=== PATIENT | male | born 1940 | race Caucasian/White ===

== ENCOUNTER 2020-04-08 18:06 | Inpatient (IN) | payer MEDICARE ==
[2020-04-08] MEDS ORDERED: cefTRIAXone 1 GM VIAL IVP STA (18:54)
[2020-04-08] MEDS ORDERED: VANCOMYCIN INJ 1 GM in SODIUM CHLORIDE 0.9% 500 ML IV STA (18:54)
--- NOTE | 2020-04-08 18:54 | ED Physician Documentation ---
History of Present Illness - Stated complaint Stated Complaint: GLF/FACIAL SWELLING - Chief complaint Chief Complaint: General - History obtained from History obtained from: Patient - History of Present Illness Timing: How many days ago (several) Pain level max: 0 Pain level now: 0 - Additonal information Additional information: 79-year-old male presents to the emergency department stating that he has had generalized weakness over the past 3 days. States that his face has been more red and swollen than usual as well. No fevers. He states that he has fallen 3 times, the last time took him almost 7 hours to get up. No changes in his medications. Nothing makes it better or worse. Review of Systems Ten Systems: 10 systems reviewed and negative Constitutional: denies: Fever, Chills Cardiac: denies: Chest pain / pressure Respiratory: denies: Cough GI: denies: Abdominal Pain, Nausea, Vomiting, Diarrhea Musculoskeletal: denies: Neck pain, Back pain Neurologic: denies: Focal weakness, Numbness, Headache PD PAST MEDICAL HISTORY - Past Medical History Past Medical History: Yes Cardiovascular: Hypertension Endocrine/Autoimmune: Type 2 diabetes - Present Medications Home Medications: Ambulatory Orders Medication Instructions Recorded Confirmed Atenolol [Tenormin] 50 mg PO DAILY 04/08/20 04/08/20 Enalapril [Vasotec] 20 mg PO DAILY 04/08/20 04/08/20 Glipizide 10 mg PO DAILY 04/08/20 04/08/20 Insulin Glargine [Lantus Solostar] 35 units SUBQ DAILY 04/08/20 04/08/20 Lovastatin 40 mg PO DAILY 04/08/20 04/08/20 Terazosin HCl 10 mg PO DAILY 04/08/20 04/08/20 Ubidecarenone [Co Q-10] 200 mg PO DAILY 04/08/20 04/08/20 amLODIPine [Norvasc] 10 mg PO QPM 04/08/20 04/08/20 hydroCHLOROthiazide 25 mg PO DAILY 04/08/20 04/08/20 [Hydrochlorothiazide] metFORMIN [Glucophage] 1,000 mg PO BIDWM 04/08/20 04/08/20 - Allergies Allergies/Adverse Reactions: Allergies Allergy/AdvReac Type Severity Reaction Status Date / Time No Known Drug Allergies Allergy Verified 04/08/20 18:16 - Living Situation Living Arrangement: reports: At home - Social History Does the pt have substance abuse?: No - Family History Family history: reports: Non contributory - Immunizations Immunizations are current?: Yes PD ED PE NORMAL - Vitals Vital signs reviewed: Yes - General General: Alert and oriented X 3, No acute distress - HEENT HEENT: Atraumatic, PERRL, Moist mucous membranes, Other (Significant bilateral facial cellulitis that extends from the cheeks up over the forehead. Crusting to the bilateral cheeks as well) - Neck Neck: Supple, no meningeal sign - Cardiac Cardiac: RRR - Respiratory Respiratory: No respiratory distress, Clear bilaterally - Abdomen Abdomen: Soft, Non tender, Non distended - Derm Derm: Warm and dry, No rash - Extremities Extremities: No edema, No calf tenderness / cord - Neuro Neuro: Alert and oriented X 3 - Psych Psych: Normal mood, Normal affect Results - Vitals Vitals: Vital Signs - 24 hr 04/08/20 04/08/20 04/08/20 18:16 18:21 19:30 Temperature 36.5 C Heart Rate 61 65 54 L Respiratory 14 16 16 Rate Blood Pressure 109/56 L 128/65 119/64 O2 Saturation 98 97 97 04/08/20 20:00 Temperature 36.1 C L Heart Rate 55 L Respiratory 18 Rate Blood Pressure 123/65 O2 Saturation 98 Oxygen O2 Source Room air - Labs Labs: Laboratory Tests 04/08/20 04/08/20 04/08/20 18:34 18:34 18:34 WBC 7.5 RBC 4.20 L Hgb 11.9 L Hct 35.2 L MCV 83.8 MCH 28.3 MCHC 33.8 RDW 13.8 Plt Count 108 L MPV 11.5 H Neut # (Auto) 5.5 Lymph # (Auto) 0.8 L [place] # (Auto) 1.1 H Eos # (Auto) 0.0 Baso # (Auto) 0.0 Absolute Nucleated RBC 0.00 Nucleated RBC % 0.0 ESR 65 H Sodium 129 L Potassium 3.4 L Chloride 88 L Carbon Dioxide 24 Anion Gap 17.0 H BUN 32 H Creatinine 1.6 H Estimated GFR (MDRD) 42 L Glucose 303 H Glycated Hemoglobin Estim Average Glucose Lactic Acid Calcium 8.8 Phosphorus 3.3 Magnesium 2.0 Total Bilirubin 3.0 H AST 26 ALT 24 Alkaline Phosphatase 49 C-Reactive Protein 16.3 H Total Protein 6.6 L Albumin 3.7 Globulin 2.9 Albumin/Globulin Ratio 1.3 Lipase 30 Urine Color Urine Clarity Urine pH Ur Specific Bre[place] Urine Protein Urine Glucose (UA) Urine Ketones Urine Occult Blood Urine Nitrite Urine Bilirubin Urine Urobilinogen Ur Leukocyte Esterase Ur Microscopic Review Urine Culture Comments 04/08/20 04/08/20 04/08/20 18:34 18:34 19:40 WBC RBC Hgb Hct MCV MCH MCHC RDW Plt Count MPV Neut # (Auto) Lymph # (Auto) [place] # (Auto) Eos # (Auto) Baso # (Auto) Absolute Nucleated RBC Nucleated RBC % ESR Sodium Potassium Chloride Carbon Dioxide Anion Gap BUN Creatinine Estimated GFR (MDRD) Glucose Glycated Hemoglobin 10.6 H Estim Average Glucose 258 H Lactic Acid 2.4 H Calcium Phosphorus Magnesium Total Bilirubin AST ALT Alkaline Phosphatase C-Reactive Protein Total Protein Albumin Globulin Albumin/Globulin Ratio Lipase Urine Color YELLOW Urine Clarity CLEAR Urine pH 5.0 Ur Specific Bre[place] >=1.030 H Urine Protein TRACE Urine Glucose (UA) 250 H Urine Ketones TRACE Urine Occult Blood NEGATIVE Urine Nitrite NEGATIVE Urine Bilirubin NEGATIVE Urine Urobilinogen 0.2 (NORMAL) Ur Leukocyte Esterase NEGATIVE Ur Microscopic Review NOT INDICATED Urine Culture Comments NOT INDICATED PD MEDICAL DECISION MAKING - ED course Complexity details: reviewed results, re-evaluated patient, considered differential, d/w patient ED course: Patient with significant facial cellulitis. Mild elevation of the lactate. Given Rocephin and vancomycin. Given IV fluids. Has hyperglycemia and weakness as well. Blood cultures drawn. He will need admission for IV antibiotics and ongoing further care. Entire face is swollen. Discussed the case with Dr. Walters, hospitalist who accepts This document was made in part using voice recognition software. While efforts are made to proofread this document, sound alike and grammatical errors may occur. Departure - Departure Disposition: 66 [facility] DC/Xfer Clinical Impression: Facial cellulitis, Hyperglycemia, Renal insufficiency Condition: Stable Discharge Date/Time: 04/08/20 21:03
[2020-04-08 19:00] LABS: BASOPHILS % (AUTO) 0.4 %; EOSINOPHILS % (AUTO) 0.4 %; HGB - HEMOGLOBIN 11.9 g/dL (14.0-18.0); LYMPHOCYTES # (AUTO) 0.8 10^3/uL (1.5-3.5); LYMPHOCYTES % (AUTO) 10.7 %; MEAN CORPUSCULAR HEMOGLOBIN 28.3 pg (27.0-31.0); MEAN CORPUSCULAR HGB CONC 33.8 g/dL (32.0-36.0); MEAN CORPUSCULAR VOLUME 83.8 fL (80.0-94.0); MEAN PLATELET VOLUME 11.5 fL (7.4-11.4); MONOCYTES # (AUTO) 1.1 10^3/uL (0.0-1.0); MONOCYTES % (AUTO) 14.7 %; NEUTROPHILS # (AUTO) 5.5 10^3/uL (1.5-6.6); NEUTROPHILS % (AUTO) 73.5 %; PLT - PLATELET COUNT 108 10^3/uL (130-450); RED CELL DISTRIBUTION WIDTH 13.8 % (12.0-15.0); WHITE BLOOD COUNT 7.5 x10^3/uL (4.8-10.8)
[2020-04-08] MEDS ORDERED: SODIUM CHLORIDE 0.9% 1,000 ML IV STA ×2 (19:07)
[2020-04-08 19:21] LABS: ALBUMIN 3.7 g/dL (3.2-5.5); ALBUMIN/GLOBULIN RATIO 1.3 (1.0-2.2); CALCIUM 8.8 mg/dL (8.5-10.3); CREATININE 1.6 mg/dL (0.6-1.2); CRP - C-REACTIVE PROTEIN 16.3 mg/dL (0-1.0); PHOSPHORUS 3.3 mg/dL (2.5-4.6); TOTAL PROTEIN 6.6 g/dL (6.7-8.2)
[2020-04-08] MEDS ORDERED: ACETAMINOPHEN 325 MG TABLET PO PRN (20:01)
[2020-04-08] MEDS ORDERED: ONDANSETRON ODT 4 MG TABLET TL PRN (20:01)
[2020-04-08] MEDS ORDERED: SODIUM CHLORIDE FLUSH 0.9% 10 ML SYRINGE IVP PRN (20:01)
[2020-04-08] MEDS ORDERED: oxyCODONE 5 MG TABLET PO PRN (20:01)
[2020-04-08] MEDS ORDERED: PROCHLORPERAZINE 10 MG/2 ML VIAL IVP PRN (20:01)
[2020-04-08] MEDS ORDERED: ONDANSETRON 4 MG/2 ML VIAL IVP PRN (20:01)
[2020-04-08 20:06] LABS: BILIRUBIN,URINE NEGATIVE (NEGATIVE); CLARITY,URINE CLEAR (CLEAR); GLUCOSE, URINE (UA) 250 mg/dL (NEGATIVE); KETONES,URINE (UA) TRACE mg/dL (NEGATIVE); LEUKOCYTE ESTERASE, URINE NEGATIVE (NEGATIVE); NITRITE,URINE NEGATIVE (NEGATIVE); OCCULT BLOOD,URINE NEGATIVE (NEGATIVE); PROTEIN,URINE TRACE mg/dL (NEGATIVE); UROBILINOGEN,URINE 0.2 (NORMAL) E.U./dL (NORMAL)
--- NOTE | 2020-04-08 20:12 | HISTORY & PHYSICAL EXAMINATION ---
Chief Complaint - Chief Complaint Chief Complaint: weakness with falls History of Present Illness - Admitted From Admitted From:: Home>ER - History Obtained From Records Reviewed: [facility] History obtained from: Dr. Rodriguez Exam Limitations: none - History of Present Illness HPI Comment/Other: This unfortunate gentleman with a history of diabetes, hypertension presents with weakness for the last 3 days. After asking many different ways, he answers me consistently by stating that he felt completely "normal" until April 05. He denies any fever, chills, change in appetite. No focal neurological deficits. No Change in bowel habits. He was sick in November for 4 days. He thinks he had COVID but was never tested. He had fever, cough, no smell, no appetite. He spent a lot of time soaking in the tub to bring his fever down. He gradually recovered and went back to "normal" until this last week. He thinks he may have been "tired" for about a week but that was about it. Because of the weakness he has fallen 3 times and it is taken him almost 7 hours to get up on that first day. He gotten up to go to the bathroom, and his leg gave out from underneath him and he slid to the floor. He lay on the floor for 7 hours and feels that his face got inflamed from the contact with ammonia and urine incontinence that he had. The only thing that he can add to that is is that he has had a red swollen face. Today he managed to get himself into the car, and was on his way to [employer] to get something to eat. He has had no appetite and has not really eaten much over the last 3 days. He was also can go to [employer]. He visited with his kkkksam-im-omx who lives here in [place]. His xinqvxs-ub-thl told him that "he looked terrible" and told him to come to the emergency room. He is usually not followed by local clinic. As such we have no previous records on him. In the emergency room he was afebrile, and slightly bradycardic in the 60s to 50s. Blood pressure was slightly low at 109/56. He had no respiratory distress and he was oxygenating well at 98% on room air. However he had extensive cellulitis over his face. Electrolyte disturbances including hyponatremia, hypokalemia, hypochloremia and a creatinine of 1.6. Lactic acid is 2.4. Is a diabetic his glucose is uncontrolled at 303. White cell count is normal with sed rate 65. Urinalysis has glucosuria but no infection. Because of the extensive cellulitis, relative hypotension in a gentleman who is on multiple medications for blood pressure, he will be admitted for treatment of severe cellulitis. History - Past Medical History Cardiovascular: reports: Hypertension Respiratory: reports: None Neuro: reports: None Endocrine/Autoimmune: reports: Type 2 diabetes (He checks his glucose daily. Last check was 153 yesterday. In the last 2 months he has been eating a lot of fresh strawberries, oranges, bananas. Been off of his diabetic diet and eating more carbs. Sometimes his glucose is been in the 200s. His last A1c in October was 6.3%.) GI: reports: None : reports: None HEENT: reports: None Psych: reports: None Musculoskeletal: reports: None Derm: reports: None MRSA Hx?: No - Family & Social History Family History Comment/Other: Mom at age 97 after a series of small strokes. She had a past medical history of hypertension. Dad at age 76 of "exhaustion". He had lived a very hard life. Maybe had high blood pressure prior to his . 2 half-sisters. 1 of metastatic lung cancer this fall 2018. Other half sister is healthy. 1 daughter with an old girlfriend. As far as he knows she is healthy. Living arrangement: At home Living Situation: Alone Social History Notes: He never smoked. Rarely drank. 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 He was once but has been for many decades. He never had children with his . He did have one daughter that he is occasionally in contact with from an old relationship. He has no history of recreational substance abuse. He was living in [place] Initially he was only here on the weekends. But for the last 20 years has [place] most [place] Still has his residence in [place] and his PCP is there as well. - Substance History Use: Uses substance without health or social issues: NONE Abuse: Recurrent use of substance despite neg consequences: NONE Dependence: Experiences withdrawal or developed tolerances: NONE - POLST Patient has POLST: No POLST Status: DNR (please see advanced care planning conversation) Meds/Allgy - Home Medications Home Medications: Ambulatory Orders Medication Instructions Recorded Confirmed Atenolol [Tenormin] 50 mg PO DAILY 04/08/20 04/08/20 Enalapril [Vasotec] 20 mg PO DAILY 04/08/20 04/08/20 Glipizide 10 mg PO DAILY 04/08/20 04/08/20 Insulin Glargine [Lantus Solostar] 35 units SUBQ DAILY 04/08/20 04/08/20 Lovastatin 40 mg PO DAILY 04/08/20 04/08/20 Terazosin HCl 10 mg PO DAILY 04/08/20 04/08/20 Ubidecarenone [Co Q-10] 200 mg PO DAILY 04/08/20 04/08/20 amLODIPine [Norvasc] 10 mg PO QPM 04/08/20 04/08/20 hydroCHLOROthiazide 25 mg PO DAILY 04/08/20 04/08/20 [Hydrochlorothiazide] metFORMIN [Glucophage] 1,000 mg PO BIDWM 04/08/20 04/08/20 - Allergies Allergies/Adverse Reactions: Allergies Allergy/AdvReac Type Severity Reaction Status Date / Time No Known Drug Allergies Allergy Verified 04/08/20 18:16 Review of Systems - Constitutional Constitutional: reports: Fatigue, Malaise, Weakness, Poor appetite, Weight gain, Other (The constitutional complaints have occurred over the last week. Weight gain has been over the last 2 to [address] for [place]. He has felt like he has been slowing down over the last year. In the less he does, the less he does. Less and less active, less and less desire to get out of the house to do things.). denies: Fever, Chills, Diaphoresis, Night sweats - Eyes Eyes: denies: Pain, Irritation, Amaurosis, Blurred vision, Vision loss - Ears, Nose & Throat Ears, Nose & Throat: denies: Ear pain, Hearing loss, Hearing aids, Nasal pain, Nasal discharge, Nosebleeds, Nasal obstruction, Nasal congestion - Cardiovascular Cariovascular: denies: Irregular heart rate, Palpitations, Chest pain, Edema, Lightheadedness, Syncope, Exertional dyspnea, Decr. exercise tolerance - Respiratory Respiratory: denies: Cough, Sputum production, Wheezing, Orthopnea, SOB at rest, SOB with exertion - Gastrointestinal Gastrointestinal: reports: Poor appetite. denies: Abdominal pain, Abdominal distention, Constipation, Diarrhea, Change in bowel habits, Nausea, Vomiting, Reflux/heartburn, Bloating - Genitourinary Genitourinary: reports: Incontinence. denies: Dysuria, Frequency, Urgency, Flank pain, Nocturia - Integumentary Integumentary: reports: Other (Since last , April 05, he has had a gradually worsening face rash that starts in his nasolabial folds and moves up his face to his scalp.). denies: Pruritis, Lesions - Neurological Neurological: reports: General weakness, Memory problems (Starting to have that over the last year. And it will be embarrassing things like forgetting his daughter's name.). denies: Focal weakness, Headache, Dizziness, Numbness Prior Level of Functionality: He is usually independent with activities of daily living. He drives a car, pays his own bills, dresses himself, feeds himself. Did spend a lot of time in restaurants until -. But with the stay in place orders has been cooking for himself more often. Did not use any durable medical equipment until this week when his weakness caused him to buy a cane to walk with. He is starting to need help around the house and thinks he will be hiring a reference librarian to come help him with that. Exam - Vital Signs Reviewed Vital Signs: Yes Vital Signs: Vital Signs x48h Temp Pulse Resp BP Pulse Ox 04/08/20 20:00 36.1 C L 55 L 18 123/65 98 04/08/20 19:30 54 L 16 119/64 97 04/08/20 18:21 65 16 128/65 97 04/08/20 18:16 36.5 C 61 14 109/56 L 98 - Physical Exam General Appearance: positive: No acute distress, Alert, Other (Elderly gentleman at 6 foot 3 inches tall, 104 kg. Main problem is lament of "I cannot even get up to sit up because I am so weak".) Eyes Bilateral: positive: PERRL, EOMI, Other (He has periorbital edema with swollen upper and lower eyelids that are both red with the cellulitis) ENT: positive: Pharynx nml, Other (His face is covered in a diffuse edema, heat, redness of confluent cellulitis. It starts at the nasolabial fold and goes up to cover all of his face, up the scalp and both sides of the scalp as well as top of the scalp. It starts to break up and become macular in the back part of his scalp. The skin of both earlobes and ears are hot, swollen.). negative: Pharyngeal erythema Neck: positive: No JVD, Lymphadenopathy (R), Lymphadenopathy (L). negative: Stiff neck, Carotid bruit Respiratory: positive: Chest non-tender, No respiratory distress. negative: Wheezes, Rales, Rhonchi Cardiovascular: positive: Regular rate & rhythm. negative: Systolic murmur, Gallop/S4, Friction rub Peripheral Pulses: positive: 1+ Abdomen: positive: Non-tender, No organomegaly, Nml bowel sounds, No distention Skin: positive: Warm, Dry. negative: Diaphoresis, Pallor Extremities: positive: Non-tender, No pedal edema, Other (He is wearing nylon socks that are knee-high, that provide an element of compression stocking similarity. Excellent foot pulses, no evidence of any previous edema or venous stasis.) Neurologic/Psychiatric: positive: Oriented x3, CN's nml (2-12), Sensation nml, Mood/affect nml. negative: Motor nml (Diffuse generalized weakness but reflexes are normal. He is weak enough that he needs a 1 person assist to sit up on the side of the bed to then transfer to stand and needs a two-person assist to make sure he can walk to a bedside commode.), Facial droop, Slurred/abnml speech, Depressed mood/affect Conclusion/Plan - Problem List (1) Facial cellulitis Conclusion/Plan: His presentation is puzzling. He is adamant that he was completely "normal" until April 05. He may felt little bit tired and fatigued but that was it. No antecedent infectious symptomatology on review of systems. His red face started only after laying on the floor for 7 hours. It is an impressive cellulitis on exam even though he does not have a fever or an elevated white cell count. He is ears are swollen enough that it almost looks as if he has malignant otitis. Plan: Inpatient status Coverage for methicillin-resistant staph because of his diabetes as well as regular strep species with Ancef and vancomycin. Check daily C-reactive protein to assess for response, check daily white cell count reveiw blood culture results when available. (2) Electrolyte disorder Conclusion/Plan: In this case, he has diabetes, lack of p.o. intake, on metformin, and I wonder how much all of this is contributed to his weakness. Sodium, potassium, chloride are all abnormal. Plan: IV fluids, treat underlying order of infection, manage p.o. intake with the IV fluids and carbohydrate restriction Check daily (3) Generalized weakness Conclusion/Plan: Due to debility from infection, and electrolyte imbalance and most likely dehydration. Plan: IV fluids for hydration Treat infection Check CPK to make sure he is not in rhabdo considering he is laying on the floor for hours at a time every day due to falls (4) Lactic acidosis Conclusion/Plan: Since he does not have a fever, elevated white cell count, I do not think lactic acidosis is from sepsis or infection. It may be due to dehydration, lack of water intake, and the use of metformin. Plan: Hold metformin Check lactic acid after fluid resuscitation (5) DM w/o complication type II, uncontrolled Conclusion/Plan: Since his metformin may have contributed to this metabolic derangement, I will hold off metformin or his sulfonylurea. Resume his usual Lantus dose at night. Give 5 units of short acting insulin with each meal. Sliding scale as well.We will give 2 L of normal saline at high rate. Check A1c Qualifiers: Glycemic state: with hyperglycemia Qualified Code(s): E11.65 - Type 2 diabetes mellitus with hyperglycemia (6) SHANTEL (acute kidney injury) Conclusion/Plan: As far as he knows, he has no chronic kidney disease and his kidney function labs have been normal in the past. He just does not remember what they are. As such I suspect an element of dehydration with acute kidney injury. Plan: IV fluids for hydration. Watch vancomycin trough to avoid further kidney injury Check BUN and creatinine daily (7) Hypertension Conclusion/Plan: He says that his blood pressure is high enough that he has to take 3 drugs. He is on atenolol, MARCUS inhibitor, calcium channel yuki, and a diuretic. At this time he is actually hypotensive in the face of diminished p.o. intake for the last few days. Orthostatic hypotension may be a component of his weakness and laying on the floor. I will resume a few of his medications tomorrow morning but avoid the hydrochlorothiazide. We will also reduce the dose of Vasotec. Qualifiers: Hypertension type: essential hypertension Qualified Code(s): I10 - Essential (primary) hypertension - Lab Results Lab results reviewed: Yes Fish Bones: 04/08/20 18:34 04/08/20 18:34
[2020-04-08 20:45] LABS: HB2 TOTAL 12.6 g/dL; HEMOGLOBIN A1C 1.16 g/dL; HEMOGLOBIN A1C % 10.6 % (4.6-6.2)
[2020-04-08] MEDS: INSULIN GLARGINE 300 UNIT/3 ML PEN SUBQ SCH (21:38)
[2020-04-08] MEDS: SODIUM CHLORIDE 0.9% 1,000 ML IV SCH (21:38)
[2020-04-08] MEDS: INSULIN ASPART 300 UNIT/3 ML PEN SUBQ SCH (21:40)
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
[2020-04-09] MEDS: SODIUM CHLORIDE FLUSH 0.9% 10 ML SYRINGE IVP SCH ×3 (01:39→18:29)
[2020-04-09] MEDS: SODIUM CHLORIDE 0.9% 1,000 ML IV SCH ×2 (01:54→06:55)
[2020-04-09] MEDS ORDERED: ceFAZolin 2 GM in SODIUM CHLORIDE 0.9% 100ML 100 ML IV SCH ×2 (03:00→11:00)
[2020-04-09] MEDS ORDERED: WATER FOR INJECTION,STERILE 10 ML ONE (03:10)
[2020-04-09 05:29] LABS: BASOPHILS % (AUTO) 0.2 %; EOSINOPHILS # (AUTO) 0.1 10^3/uL (0.0-0.7); EOSINOPHILS % (AUTO) 1.1 %; HGB - HEMOGLOBIN 10.4 g/dL (14.0-18.0); LYMPHOCYTES # (AUTO) 0.8 10^3/uL (1.5-3.5); LYMPHOCYTES % (AUTO) 15.9 %; MEAN CORPUSCULAR HEMOGLOBIN 27.3 pg (27.0-31.0); MEAN CORPUSCULAR HGB CONC 32.6 g/dL (32.0-36.0); MEAN CORPUSCULAR VOLUME 83.7 fL (80.0-94.0); MEAN PLATELET VOLUME 11.2 fL (7.4-11.4); MONOCYTES # (AUTO) 0.9 10^3/uL (0.0-1.0); MONOCYTES % (AUTO) 16.6 %; NEUTROPHILS # (AUTO) 3.5 10^3/uL (1.5-6.6); NEUTROPHILS % (AUTO) 65.8 %; PLT - PLATELET COUNT 99 10^3/uL (130-450); RED BLOOD COUNT 3.81 10^6/uL (4.70-6.10); RED CELL DISTRIBUTION WIDTH 13.8 % (12.0-15.0); WHITE BLOOD COUNT 5.3 x10^3/uL (4.8-10.8)
[2020-04-09 05:48] LABS: CALCIUM 7.8 mg/dL (8.5-10.3); CREATININE 1.4 mg/dL (0.6-1.2); CRP - C-REACTIVE PROTEIN 11.7 mg/dL (0-1.0)
[2020-04-09] MEDS: PANTOPRAZOLE 40 MG VIAL IVP SCH (06:12)
[2020-04-09] MEDS: POTASSIUM CHLORIDE 20 MEQ TABLET PO SCH ×3 (08:07→18:26)
[2020-04-09] MEDS: INSULIN ASPART 300 UNIT/3 ML PEN SUBQ SCH ×7 (08:07→22:02)
[2020-04-09] MEDS: ENALAPRIL 5 MG TABLET PO SCH (08:57)
[2020-04-09] MEDS: amLODIPine 5 MG TABLET PO SCH (08:57)
[2020-04-09] MEDS ORDERED: atenoloL 25 MG TABLET PO SCH (09:00)
--- NOTE | 2020-04-09 09:29 | PHARMACY PROGRESS NOTE ---
- Best Possible Medication History Admit Date and Time: 04/08/202000 Processed by: Pharmacy Medication History completed: Yes Secondary Source(s): Pharmacy records, Insurance records As the person ultimately responsible for medication therapy, providers are able to order a medication from an existing home medication list in [facility] via the "Reconcile Routine" prior to Confirmation of that medication by administrative support clerk. Such practice is discouraged except when the physician, in their clinical judgment, deems that a medical need exists for a medication without regard to previous use.
[2020-04-09] MEDS: ceFAZolin 2 GM in SODIUM CHLORIDE 0.9% 100ML 100 ML IV SCH ×2 (10:41→20:27)
--- NOTE | 2020-04-09 11:33 | PROVIDER PROGRESS NOTE ---
Assessment/Plan - Problem List (1) Facial cellulitis Assessment/Plan: He was started on Ancef and Vanco empirically, after blood cultures were drawn. Blood cultures are negative today after 24 hours. Pharmacy reviewed this choice of antibiotics and recommends that Vancomycin can be stopped because he has very low risk for MRSA. Continue IV Ancef. Await cultures. Symptomatic treatment for pain and discomfort of the face. (2) Malar rash Assessment/Plan: Appearance of the above cellulitis has a demarcation at and does not involve the skin below the nasolabial fold. Will work-up for lupus and consider any other dermatologic causes. Follow CRP or ESR. (3) Psoriasis Assessment/Plan: Patient describes that he is scalp itchiness and flakiness and over his forehead and eyebrows. He has tried multiple oils and ointments and usually takes a "3- hour bath to soak" and then puts on Vaseline intensive care ointment to his sca lp and forehead which prevents itchiness and scaling. Potentially his psoriasis became infected creating this facial cellulitis. We will order topical steroid cream and topical emollient (Eucerin). (4) SHANTEL (acute kidney injury) Assessment/Plan: Improving BUN/creat with iv hydration. Follow BMP daily. Continue iv hydration. (5) Micturition syncope Assessment/Plan: I spent a long time obtaining the events surrounding both episodes of falling while he was in the bathroom: Both occurred while he got up in the middle the night to go to the bathroom and was standing and urinating. He says that he did not black out and can remember everything but the feeling was that his "legs gave out on him". Will start work-up for syncope including getting EKG, Echo, telemetry, orthostatic vital sign checks, carotid Doppler and head CT. We will restart his Terazosin, since he probably was straining during urinating. (6) Orthostasis Assessment/Plan: He has a 10 mm drop in orthostatic blood pressure today and has a lower blood pressure than normal, despite getting only some of his antihypertensives. He does not have a compensatory tachycardia with this blood pressure drop, in fact blood pressure is in the 50s and 60s. I suspect he was already dehydrated and was taking all his usual BP meds and may have gotten bradycardic during micturition to cause the 2 episodes of falls in t he BR while standing. Will not resume all his home blood pressure meds, as was the plan by the admit ting provider. Decrease his atenolol from 25 mg daily to 12.5 mg daily.. (7) DM w/o complication type II, uncontrolled Assessment/Plan: Patient gave me an extensive description regarding his diabetic management. He has been a diabetic for 60 years. He has been on insulin and wanted to decrease the dose substantially. He also takes metformin maximum dose per day and glipizide. He eats only 1 meal a day which is between 5pm and 8 pm, at a restaurant. During [facility] all the restaurants closed and he was forced to make his own meals. He makes a very large meal and "eats for 10 people". He also was eating fruits that he usually avoids such as bananas, oranges and strawberries. He saw that his glucose was fluctuating at home over the [facility] isolation weeks to as high as 300. He did check his glucose during the 2 days that he was weaker and laying on the ground and states that it was no lower or no higher than his usual range of between 122 and maximum of 300. A1c here returned at 10.8, indicating poor control. Here he is on a carb controlled diet, fingerstick checks with sliding scale insulin plus his Lantus insulin. (8) Weakness Assessment/Plan: Patient describes that he has been "weaker than usual over the past 1-1/2 weeks". This culminated in the 2 episodes of falling in his bathroom. He laid on the ground for 7 hours after the first 1 and 5 hours after the second 1 and then was able to squirm over 2 parts of the house that had a carpet where he could get himself up. Dates that he checks his blood pressure and glucose several times a day and on both of those days the blood pressures in a sitting position was in his normal range and glucose as well. Will evaluate for a stroke with head CT. We will order PT and OT for evaluation. (9) Hypokalemia Assessment/Plan: Possibly related to dehydration, inadequate p.o. intake, inadequate IV rep lacement and from hyper glycemia. Replace. Follow BMP daily (10) Hyponatremia Assessment/Plan: Possibly related to hyperglycemia and his dehydration. Continue with saline hydration. Follow BMP daily (11) Anemia Assessment/Plan: This may have also led to the weakness and potential syncope too. Will check B12 and folate stores and iron stores, replace if low. Follow CBC daily. (12) Obstructive sleep apnea on CPAP Assessment/Plan: He has his CPAP machine at home which is locked up and no one can get to it. Will discuss with RT as to whether we have any hospital CPAP units here, for him to use. - Current Meds Current Meds: Current Medications Generic Name Dose Route Start Last Admin Trade Name Freq PRN Reason Stop Dose Admin Amlodipine Besylate 5 mg 04/09/20 09:00 04/09/20 08:57 Norvasc PO 5 mg DAILY HILL Administration Atenolol 25 mg 04/09/20 09:00 04/09/20 08:57 Tenormin PO 25 mg DAILY HILL Administration Enalapril Maleate 10 mg 04/09/20 09:00 04/09/20 08:57 Vasotec PO 10 mg DAILY HILL Administration Cefazolin Sodium 2 gm/ Sodium 100 mls @ 200 mls/hr 04/09/20 11:00 04/09/20 11:10 Chloride IV Infused Q8H HILL Infusion Insulin Aspart 5 unit 04/09/20 08:00 04/09/20 08:07 Novolog SUBQ 5 unit TIDWM HILL Administration Protocol Insulin Aspart 1 - 9 unit 04/08/20 21:00 04/09/20 08:09 Novolog SUBQ 5 unit 0800,1200,1700,2100 HILL Administration Protocol Insulin Glargine 35 unit 04/08/20 21:00 04/08/20 21:38 Lantus Solostar SUBQ 35 unit QPM HILL Administration Pantoprazole Sodium 40 mg 04/09/20 07:00 04/09/20 06:12 Protonix IVP 40 mg QDAC HILL Administration Potassium Chloride 40 meq 04/09/20 08:00 04/09/20 08:07 K-Dur PO 04/09/20 17:01 40 meq TIDWM HILL Administration Sodium Chloride 10 ml 04/08/20 20:01 04/09/20 06:12 Normal Saline Flush 0.9% IVP 10 ml PRN PRN Administration NEEDED PER PROVIDER ORDERS Sodium Chloride 10 ml 04/09/20 01:00 04/09/20 01:39 Normal Saline Flush 0.9% IVP Not Given 0100,0900,1700 HILL - Lab Result Fish Bone Diagrams: 04/09/20 05:18 04/09/20 05:18 Subjective - Subjective Patient Reports: Feeling Better, Other (Cannot sleep in a strange bed without his CPAP machine. Still feels very weak.) Objective Vital Signs: Vital Signs - 24 hr 04/08/20 04/08/20 04/08/20 18:16 18:21 19:30 Temperature 36.5 C Heart Rate 61 65 54 L Heart Rate [ Radial] Heart Rate [ Sitting (After 1 Minute)] Heart Rate [ Standing (After 1 Minute)] Heart Rate [ Supine] Respiratory 14 16 16 Rate Blood Pressure 109/56 L 128/65 119/64 Blood Pressure [Left Brachial artery] Blood Pressure [Sitting (After 1 Minute)] Blood Pressure [Standing ( After 1 Minute) ] Blood Pressure [Supine] O2 Saturation 98 97 97 04/08/20 04/09/20 04/09/20 20:00 00:00 06:27 Temperature 36.1 C L 36.9 C 36.9 C Heart Rate 55 L 59 L Heart Rate [ 59 L Radial] Heart Rate [ Sitting (After 1 Minute)] Heart Rate [ Standing (After 1 Minute)] Heart Rate [ Supine] Respiratory 18 18 18 Rate Blood Pressure 123/65 Blood Pressure 121/57 L [Left Brachial artery] Blood Pressure [Sitting (After 1 Minute)] Blood Pressure [Standing ( After 1 Minute) ] Blood Pressure [Supine] O2 Saturation 98 95 95 04/09/20 04/09/20 08:00 09:00 Temperature 36.9 C Heart Rate Heart Rate [ 53 L Radial] Heart Rate [ 62 Sitting (After 1 Minute)] Heart Rate [ 70 Standing (After 1 Minute)] Heart Rate [ 56 L Supine] Respiratory 18 Rate Blood Pressure Blood Pressure 130/57 L [Left Brachial artery] Blood Pressure 122/58 L [Sitting (After 1 Minute)] Blood Pressure 110/89 H [Standing ( After 1 Minute) ] Blood Pressure 116/59 L [Supine] O2 Saturation 96 Oxygen O2 Source Room air I&O (Last 24 Hrs): Intake and Output Totals x24h 04/07/20 04/08/20 04/09/20 23:59 23:59 23:59 Intake Total 1500 2590.000 Output Total 350 Balance 1500 2240.000 General: Alert, Oriented x3 HEENT: Mucous membr. moist/pink, Other (Scalp HAS SCALES. FOREHEAD AND EARS AND CHEEKS ARE RED, WARM AND SWOLLEN, EYEBROWS HAVE SCALES. NORMAL SKIN AT NASO- LABIAL FOLD) Neck: No JVD Neuro: Alert, Non Focal, CN 2-12 Grossly Intact Cardiovascular: Regular rate Respiratory: No respiratory distress Abdomen: Soft Extremities: No edema - Results Results: Laboratory Results WBC 5.3 x10^3/uL (4.8-10.8) 04/09/20 05:18 RBC 3.81 10^6/uL (4.70-6.10) L 04/09/20 05:18 Hgb 10.4 g/dL (14.0-18.0) L 04/09/20 05:18 Hct 31.9 % (42.0-52.0) L 04/09/20 05:18 MCV 83.7 fL (80.0-94.0) 04/09/20 05:18 MCH 27.3 pg (27.0-31.0) 04/09/20 05:18 MCHC 32.6 g/dL (32.0-36.0) 04/09/20 05:18 RDW 13.8 % (12.0-15.0) 04/09/20 05:18 Plt Count 99 10^3/uL (130-450) L 04/09/20 05:18 MPV 11.2 fL (7.4-11.4) 04/09/20 05:18 Neut # (Auto) 3.5 10^3/uL (1.5-6.6) 04/09/20 05:18 Lymph # (Auto) 0.8 10^3/uL (1.5-3.5) L 04/09/20 05:18 [place] # (Auto) 0.9 10^3/uL (0.0-1.0) 04/09/20 05:18 Eos # (Auto) 0.1 10^3/uL (0.0-0.7) 04/09/20 05:18 Baso # (Auto) 0.0 10^3/uL (0.0-0.1) 04/09/20 05:18 Absolute Nucleated RBC 0.00 x10^3/uL 04/09/20 05:18 Nucleated RBC % 0.0 /100WBC 04/09/20 05:18 ESR 65 mm/Hr (0-20) H 04/08/20 18:34 Sodium 131 mmol/L (135-145) L 04/09/20 05:18 Potassium 3.1 mmol/L (3.5-5.0) L 04/09/20 05:18 Chloride 97 mmol/L (101-111) L 04/09/20 05:18 Carbon Dioxide 25 mmol/L (21-32) 04/09/20 05:18 Anion Gap 9.0 (6-13) 04/09/20 05:18 BUN 29 mg/dL (6-20) H 04/09/20 05:18 Creatinine 1.4 mg/dL (0.6-1.2) H 04/09/20 05:18 Estimated GFR (MDRD) 49 (>89) L 04/09/20 05:18 Glucose 240 mg/dL (70-100) H 04/09/20 05:18 POC Whole Bld Glucose 235 mg/dL (70 - 100) H 04/09/20 07:34 Glycated Hemoglobin 10.6 % (4.6-6.2) H 04/08/20 18:34 Estim Average Glucose 258 (70-100) H 04/08/20 18:34 Lactic Acid 1.8 mmol/L (0.5-2.2) 04/08/20 22:40 Calcium 7.8 mg/dL (8.5-10.3) L 04/09/20 05:18 Phosphorus 3.3 mg/dL (2.5-4.6) 04/08/20 18:34 Magnesium 2.0 mg/dL (1.7-2.8) 04/08/20 18:34 Total Bilirubin 3.0 mg/dL (0.2-1.0) H 04/08/20 18:34 AST 26 IU/L (10-42) 04/08/20 18:34 ALT 24 IU/L (10-60) 04/08/20 18:34 Alkaline Phosphatase 49 IU/L (42-121) 04/08/20 18:34 Total Creatine Kinase 211 IU/L (22-269) 04/08/20 18:34 C-Reactive Protein 11.7 mg/dL (0-1.0) H 04/09/20 05:18 Total Protein 6.6 g/dL (6.7-8.2) L 04/08/20 18:34 Albumin 3.7 g/dL (3.2-5.5) 04/08/20 18:34 Globulin 2.9 g/dL (2.1-4.2) 04/08/20 18:34 Albumin/Globulin Ratio 1.3 (1.0-2.2) 04/08/20 18:34 Lipase 30 U/L (22-51) 04/08/20 18:34 Urine Color YELLOW 04/08/20 19:40 Urine Clarity CLEAR (CLEAR) 04/08/20 19:40 Urine pH 5.0 PH (5.0-7.5) 04/08/20 19:40 Ur Specific [place] >=1.030 (1.002-1.030) H 04/08/20 19:40 Urine Protein TRACE mg/dL (NEGATIVE) 04/08/20 19:40 Urine Glucose (UA) 250 mg/dL (NEGATIVE) H 04/08/20 19:40 Urine Ketones TRACE mg/dL (NEGATIVE) 04/08/20 19:40 Urine Occult Blood NEGATIVE (NEGATIVE) 04/08/20 19:40 Urine Nitrite NEGATIVE (NEGATIVE) 04/08/20 19:40 Urine Bilirubin NEGATIVE (NEGATIVE) 04/08/20 19:40 Urine Urobilinogen 0.2 (NORMAL) E.U./dL (NORMAL) 04/08/20 19:40 Ur Leukocyte Esterase NEGATIVE (NEGATIVE) 04/08/20 19:40 Ur Microscopic Review NOT INDICATED 04/08/20 19:40 Urine Culture Comments NOT INDICATED 04/08/20 19:40
[2020-04-09] MEDS ORDERED: EMOLLIENT CREAM 57 GM TUBE TOP PRN (16:29)
[2020-04-09] MEDS ORDERED: NS W/20 MEQ KCL 1,000 ML IV SCH (17:00)
--- NOTE | 2020-04-09 18:10 | CT Report ---
PROCEDURE: HEAD WO INDICATIONS: Weakness, freq falls TECHNIQUE: Noncontrast 4.5 mm thick angled axial sections acquired from the foramen magnum to the vertex. For r adiation dose reduction, the following was used: automated exposure control, adjustment of mA and/or kV according to patient size. COMPARISON: None. FINDINGS: Image quality: Excellent. CSF spaces: Basal cisterns are patent. No extra-axial fluid collections. Ventricles are normal in size and shape. Brain: No midline shift. No intracranial masses or hemorrhage. Cantor-white matter interface is norm al. Skull and face: Calvarium and visualized facial bones are intact, without suspicious lesions. Sinuses: Visualized sinuses and mastoids are clear. IMPRESSION: No intracranial hemorrhage is seen. No significant intracranial abnormality is seen. Age-appropriate brain parenchymal volume loss and chronic small vessel ischemic change can be seen. Reviewed by: Hussein Mark MD on 04/09/2020 5:09 PM ELISE Approved by: Hussein Mark MD on 04/09/2020 5:09 PM ELISE Station ID: [id number]
[2020-04-09] MEDS: TRIAMCINOLONE 0.5% CREAM 15 GM TUBE TOP SCH ×2 (18:19→22:05)
[2020-04-09] MEDS ORDERED: ceFAZolin 1 GM VIAL ONE (20:24)
[2020-04-09] MEDS ORDERED: VANCOMYCIN INJ 1.75 GM in SODIUM CHLORIDE 0.9% 500 ML IV SCH (21:00)
[2020-04-09] MEDS: INSULIN GLARGINE 300 UNIT/3 ML PEN SUBQ SCH (22:02)
[2020-04-09] MEDS: TERAZOSIN 5 MG CAPSULE PO SCH ×2 (22:03→22:25)
[2020-04-10] MEDS: ceFAZolin 2 GM in SODIUM CHLORIDE 0.9% 100ML 100 ML IV SCH ×2 (03:23→11:34)
[2020-04-10] MEDS: PANTOPRAZOLE 40 MG VIAL IVP SCH (06:00)
[2020-04-10] MEDS: SODIUM CHLORIDE FLUSH 0.9% 10 ML SYRINGE IVP SCH ×2 (06:00→09:27)
[2020-04-10] MEDS: INSULIN ASPART 300 UNIT/3 ML PEN SUBQ SCH ×4 (07:59→12:32)
[2020-04-10 08:18] LABS: BASOPHILS % (AUTO) 0.3 %; EOSINOPHILS # (AUTO) 0.1 10^3/uL (0.0-0.7); EOSINOPHILS % (AUTO) 0.8 %; HGB - HEMOGLOBIN 10.7 g/dL (14.0-18.0); LYMPHOCYTES # (AUTO) 0.9 10^3/uL (1.5-3.5); LYMPHOCYTES % (AUTO) 14.6 %; MEAN CORPUSCULAR HEMOGLOBIN 28.3 pg (27.0-31.0); MEAN CORPUSCULAR VOLUME 85.7 fL (80.0-94.0); MEAN PLATELET VOLUME 10.7 fL (7.4-11.4); MONOCYTES # (AUTO) 0.9 10^3/uL (0.0-1.0); MONOCYTES % (AUTO) 15.3 %; NEUTROPHILS # (AUTO) 4.1 10^3/uL (1.5-6.6); NEUTROPHILS % (AUTO) 68.3 %; PLT - PLATELET COUNT 111 10^3/uL (130-450); RED BLOOD COUNT 3.78 10^6/uL (4.70-6.10); WHITE BLOOD COUNT 5.9 x10^3/uL (4.8-10.8)
[2020-04-10 08:40] LABS: CALCIUM 8.1 mg/dL (8.5-10.3); CREATININE 1.3 mg/dL (0.6-1.2); CRP - C-REACTIVE PROTEIN 8.5 mg/dL (0-1.0)
[2020-04-10 08:51] LABS: THYROID STIMULATING HORMONE 2.14 uIU/mL (0.34-5.60)
[2020-04-10] MEDS ORDERED: atenoloL 25 MG TABLET PO SCH (09:00)
[2020-04-10 09:02] LABS: FOLATE 21.16 ng/mL (5.90 - >24.8)
[2020-04-10] MEDS: ENALAPRIL 5 MG TABLET PO SCH (09:21)
[2020-04-10] MEDS: amLODIPine 5 MG TABLET PO SCH (09:21)
[2020-04-10] MEDS: TRIAMCINOLONE 0.5% CREAM 15 GM TUBE TOP SCH (09:27)
--- NOTE | 2020-04-10 10:21 | Discharge Plan ---
Discharge Plan Problem Reviewed?: Yes Disposition: Home, Self Care Condition: Stable Prescriptions: amLODIPine [Norvasc] 5 mg PO DAILY #30 tablet atenoloL [Tenormin] 25 mg PO DAILY #30 tablet Cephalexin [Keflex] 500 mg PO BID #8 capsule Enalapril [Vasotec] 5 mg PO DAILY #30 tablet Ferrous Gluconate 240 mg PO DAILY #30 tablet Diet: Diabetic Activity Restrictions: Activity as Tolerated Shower Restrictions: No Driving Restrictions: No Instruction Topics: ED Hypotension Orthostatic Health Concerns: You were admitted because of facial cellulitis. This was a result of laying on the ground after being too weak to raise up from the bathroom floor. The reason for being so weak was partly caused by orthostatic hypotension. The reason for that, is that you were dehydrated and your blood pressure medications need lower doses and because of anemia. We checked your blood pressure and it drops with standing. We checked your heart with an Echo cardiogram and it showed a strong heart with some stress on the RIGHT SIDE, from having sleep apnea. The Physical Therapy evaluation showed good muscle strength but neck problems and possibly spinal chord problems. The right shoulder XRays showed arthritic changes and a rotator cuff problem. All these results will go to Dr Obrien. Please hydrate alot for the next 2-3 days and replenish with Potassium- containing foods for the next 2-3 days. Please follow the new list of dosing for your blood pressure medicines. There should be no more bedtime dosing of your blood pressure medications, just once daily when you get up in the morning. You may resume your Metformin dosing and your usual diabetic management. Please resume using the CPAP mask. You were found to be very anemic with iron deficiency anemia, which may mean poor bone marrow production of red blood cells, or loss of hemoglobin in the GI tract. This anemia needs further evaluation by your primary care doctor soon. A new prescription for Iron replacement has been ordered, at the [facility] pharmacy. You require 4 more days of antibiotics for the skin infection of your face. The prescription was sent to the [facility] pharmacy, start that tomorrow morning. Resume your usual management for psoriasis and the prostate medicine. See your PCP in the next 1 to 2 weeks for hospital follow-up and for further management of: #1 the blood pressure medicine adjustments #2 the anemia evaluation #3 the skin infection #4 suggestions for management of your psoriasis #5 diabetic management because of the change in your diet during the COVID isolation #6 your worsening memory #7 you neck, right shoulder pain and possible spinal chord disease Plan of Treatment: As above. Care Goals: Improvement in symptoms and stabilization are the goals. Assessment: The patient understands and is agreeable with the plan. Additional Instructions or Follow Up instructions: If you have new or worsening symptoms. please call Dr Obrien for advice or come to the ER. No Smoking: If you smoke, Please STOP! Call for help. Follow-up with: Tyrese Obrien MD [Primary Care Provider] -
--- NOTE | 2020-04-10 12:16 | DISCHARGE SUMMARY ---
Discharge Summary Admit Date: 04/08/20 Discharge Date: 04/10/20 Discharging Provider: Dr Helen Davenport Primary Care Provider: Carol Navarrete Condition at Discharge: Stable Discharge Disposition: 01 Home, Self Care - HPI History of Present Illness: From the admission H&P of Dr. Rachael Walters: This unfortunate gentleman with a history of diabetes, hypertension presents wit h weakness for the last 3 days. After asking many different ways, he answers me consistently by stating that he felt completely "normal" until April 05. He denies any fever, chills, change in appetite. No focal neurological deficits. No Change in bowel habits. He was sick in November for 4 days. He thinks he had COVID but was never tested. He had fever, cough, no smell, no appetite. He spent a lot of time soaking in the tub to bring his fever down. He gradually recovered and went back to "normal" until this last week. He thinks he may have been "tired" for about a week but that was about it. Because of the weakness he has fallen 3 times and it is taken him almost 7 hours to get up on that first day. He gotten up to go to the bathroom, and his leg gave out from underneath him and he slid to the floor. He lay on the floor for 7 hours and feels that his face got inflamed from the contact with ammonia and urine incontinence that he had. The only thing that he can add to that is is that he has had a red swollen face. Today he managed to get himself into the car, and was on his way to [employer] to get something to eat. He has had no appetite and has not really eaten much over the last 3 days. He was also can go to [employer]. He visited with his inrhomb-qp-iqu who lives here in [place]. His jpvkvru-[id number]-pam told him that "he looked terrible" and told him to come to the emergency room. He is usually not followed by local clinic. As such we have no previous records on him. In the emergency room he was afebrile, and slightly bradycardic in the 60s to 50s. Blood pressure was slightly low at 109/56. He had no respiratory distress and he was oxygenating well at 98% on room air. However he had extensive cellulitis over his face. Electrolyte disturbances including hyponatremia, hypokalemia, hypochloremia and a creatinine of 1.6. Lactic acid is 2.4. Is a diabetic his glucose is uncontrolled at 303. White cell count is normal with sed rate 65. Urinalysis has glucosuria but no infection. Because of the extensive cellulitis, relative hypotension in a gentleman who is on multiple medications for blood pressure, he will be admitted for treatment of severe cellulitis. - HOSPITAL COURSE Hospital Course: (1) Facial cellulitis He was started on Ancef and Vanco empirically, after blood cultures were drawn. Blood cultures were negative at discharge. Pharmacy reviewed the choice of an tibiotics and recommended that Vancomycin be stopped because he has very low risk for MRSA. He was discharged to take several more days of oral Keflex. (2) Malar rash Appearance of the above cellulitis has a demarcation at, and does not involve the skin below, the nasolabial fold. We sent off labs for lupus which was still pending at discharge. Consider a Dermatology evaluation as an outpatient. (3) Psoriasis Patient describes that he has scalp itchiness and flakiness and over his forehead and eyebrows. He has tried multiple oils and ointments and usually takes a "3-hour bath to soak" and then puts on Vaseline Intensive Care ointment to his scalp and forehead which prevents itchiness and scaling. Potentially his psoriasis became infected creating this facial cellulitis. We ordered topical steroid cream bid and topical emollient (Eucerin) prn. (4) Anemia, iron deficiency The admission Hgb of 11 dropped to 10. Anemia may have also led to the weakness and potential syncope too. We checked B12 and folate levels which were normal but iron stores were low. His guaic stool. He was started and discharged on oral Iron and needs further work-up of this. (5) SHANTEL (acute kidney injury) BUN/creat of 32/1.6 at admission improved to 18/1.3 at discharge, after 2 days of iv hydration. (6) Micturition syncope I spent a long time with him, obtaining the details and events surrounding both episodes of falling while he was in the bathroom: Both occurred while he got up in the middle the night to go to the bathroom and was standing and urinating. He says that he does not think he blacked out and remembers laying on the floor for hours with the feeling was that his legs were too weak and could not rise, but eventually crawled to a carpeted floor. We restarted his Terazosin, since he probably was straining during urinating. He was evaluated by PT for weakness or gait problem and PT found none. (7) Orthostasis He had a 20 mmHg drop in orthostatic blood pressure and was running a lower blood pressure than normal, despite being on only some of his antihypertensive meds. He does not have a compensatory tachycardia during his blood pressure drop, in fact heart rate was in the 50s and 60s. Atenolol dose was decreased from 25 mg daily to 12.5 mg daily, and discharged with this lower dose to continue. I suspect he was already dehydrated and was taking all his usual BP meds and may have gotten bradycardic during micturition to cause the 2 episodes of falls in the BR while standing. (8) Hyponatremia Admission sodium was 129, related his dehydration and hyperglycemia. After iv saline hydration, sodium was 138. (9) Hypokalemia Possibly related to dehydration, inadequate p.o. intake. It was replaced. (10) DM type II, uncontrolled Patient gave me an extensive description regarding his diabetic management. He has been a diabetic for 60 years. He had been on insulin and wanted to decrease the dose substantially. He also takes metformin, maximum dose per day, and glipizide. He eats only 1 meal a day which is between 5pm and 8 pm, at a restaurant every day. During [facility] all the restaurants closed and he was forced to make his own meals. He makes a very large meal and "eats for 10 people". He also was eating fruits that he usually avoids such as bananas, oranges and strawberries. He saw that his glucose was fluctuating at home, during the [facility] isolation weeks, to as high as 300. A1c here returned at 10.8, indicating poor glucose control. He claims he did check his glucose during the 2 days that he was weaker and laying on the ground and states that it was no lower or no higher than his usual range of between 122 and maximum of 300. While here, he was on a carb controlled diet, fingerstick checks with sliding scale insulin coverage plus his Lantus insulin dose. (11) Weakness Patient described that he has been "weaker than usual over the past 1-1/2 weeks". This culminated in the 2 episodes of falling in his bathroom. He laid on the ground for 7 hours after the first fall, and then 5 hours on the ground after the second fall and then was able to crawl to a carpeted floor where he could get himself up. He checks his blood pressure and glucose several times a day and stated that, on both of those days, the blood pressures in a sitting position was in his normal range and glucose as well. He did not seek medical attention until told to go to the ER by his [id number]-elf. The head CT showed no acute stroke. (12) Right shoulder pain On his last day, he described having R shoulder pain causing R hand weakness. Shoulder XRays (3 view) were done that showed DJD and rotator cuff problem. This needs further outpatient evaluation. (13) Obstructive sleep apnea on CPAP He has his CPAP machine at home which is locked up and no one can get to it. (14) Cor pulmonale An Echo was done as part of syncope evaluation and a new diagnosis of Cor pulmonale was found. Possibly he has under-treated sleep apnea or other pulmonary disease. (15) Poor memory While here, the patient did not understand the system of being taken care of by Hospitalists, even though this was explained. He did not remember this provider from the first to the second time that he saw me. He admitted that he has poor recall of details. The head CT showed small vessel ischemic changes, consistent with age. He needs evaluation and possible management for dementia. - ALLERGIES Allergies/Adverse Reactions: Allergies Allergy/AdvReac Type Severity Reaction Status Date / Time No Known Drug Allergies Allergy Verified 04/08/20 18:16 - MEDICATIONS Home Medications: Ambulatory Orders Medication Instructions Recorded Confirmed Glipizide 10 mg PO DAILY 04/08/20 04/08/20 Insulin Glargine [Lantus Solostar] 35 units SUBQ DAILY 04/08/20 04/08/20 Lovastatin 40 mg PO DAILY 04/08/20 04/08/20 Terazosin HCl 10 mg PO DAILY 04/08/20 04/08/20 Ubidecarenone [Co Q-10] 200 mg PO DAILY 04/08/20 04/08/20 metFORMIN [Glucophage] 1,000 mg PO BIDWM 04/08/20 04/08/20 Cephalexin [Keflex] 500 mg PO BID #8 capsule 04/10/20 Enalapril [Vasotec] 5 mg PO DAILY #30 tablet 04/10/20 Ferrous Gluconate 240 mg PO DAILY #30 tablet 04/10/20 amLODIPine [Norvasc] 5 mg PO DAILY #30 tablet 04/10/20 atenoloL [Tenormin] 25 mg PO DAILY #30 tablet 04/10/20 - PHYSICAL EXAM AT DISCHARGE General Appearance: positive: No acute distress, Alert Eyes Bilateral: positive: Other (Swollen eye lids) ENT: positive: Other (Reness but diminished swelling of the cheeks, nose, ears and forehead. Scaly pink scalp.) Neck: positive: Nml inspection Respiratory: positive: No respiratory distress, Breath sounds nml Cardiovascular: positive: Regular rate & rhythm, No murmur Abdomen: positive: Non-tender, No distention Skin: positive: Pallor, Other (Face as above) Extremities: positive: Non-tender, Pedal edema (Trace ankle edema) Neurologic/Psychiatric: positive: Oriented x3, Other (Non-focal, poor memory.) - LABS Result Diagrams: 04/10/20 08:05 04/10/20 08:05 - DIAGNOSTIC IMAGING Diagnostic Imaging Results: Final report reviewed - FOLLOW UP Follow Up: See PCP soon, for hospital follow-up. - TIME SPENT Time Spent in Discharge (Minutes): 65
--- NOTE | 2020-04-10 12:47 | XRAY Report ---
PROCEDURE: Shoulder 3 View RT INDICATIONS: R shoulder pain and muscle weakness TECHNIQUE: 3 views of the shoulder were acquired. COMPARISON: None. FINDINGS: Bones: No fractures or dislocations. No suspicious bony lesions. Visualized ribs appear intact. S evere acromioclavicular degenerative narrowing. There is a mild high riding appearance of the humeral head. Soft tissues: No suspicious soft tissue calcifications. IMPRESSION: 1. Mild high riding appearance of the humeral head which can be seen with rotator cuff pathology. As clinically indicated, MRI may be obtained for additional evaluation. 2. Severe acromioclavicular degenerative narrowing. Reviewed by: Rhonda Coughlin MD on 04/10/2020 12:45 PM PDT Approved by: Rhonda Coughlin MD on 04/10/2020 12:45 PM PDT Station ID: [id number]
[2020-04-10 13:06] VITALS: BP 130/62
[2020-04-10] MEDS ORDERED: CHOLECALCIFEROL 400 UNIT TABLET PO SCH (16:29)
[2020-04-12 14:14] LABS: ANA SCREEN NEGATIVE (NEGATIVE)
== END 2020-04-10 13:13 | disposition home or self-care (01) | DRG 603 ==
LOC: ED 18:06 → MS2 20:01
PROVIDERS: ADMIT Specialist; ATTEND Internal Medicine
DX: L03.211 Cellulitis of face (principal); N17.9 Acute kidney failure, unspecified; E87.1 Hypo-osmolality and hyponatremia; N28.9 Disorder of kidney and ureter, unspecified; E87.2 Acidosis; L03.811 Cellulitis of head [any part, except face]; R74.0 Nonspecific elevation of levels of transaminase and lactic acid dehydrogenase [LDH]; H00.035 Abscess of left lower eyelid; H00.034 Abscess of left upper eyelid; H00.032 Abscess of right lower eyelid; H00.031 Abscess of right upper eyelid; H60.13 Cellulitis of external ear, bilateral; J34.0 Abscess, furuncle and carbuncle of nose; R21 Rash and other nonspecific skin eruption; L40.9 Psoriasis, unspecified; D50.9 Iron deficiency anemia, unspecified; I95.1 Orthostatic hypotension; E86.0 Dehydration; E87.6 Hypokalemia; E87.8 Other disorders of electrolyte and fluid balance, not elsewhere classified; E11.65 Type 2 diabetes mellitus with hyperglycemia; Z79.4 Long term (current) use of insulin; M19.011 Primary osteoarthritis, right shoulder; G47.33 Obstructive sleep apnea (adult) (pediatric); I27.81 Cor pulmonale (chronic); R41.3 Other amnesia; Z91.81 History of falling; I10 Essential (primary) hypertension; Z79.899 Other long term (current) drug therapy; Z66 Do not resuscitate; R63.0 Anorexia; R32 Unspecified urinary incontinence; R00.1 Bradycardia, unspecified; M67.911 Unspecified disorder of synovium and tendon, right shoulder; M54.2 Cervicalgia
CPT/HCPCS: 36415; 70450; 73030; 80048; 80053; 81003; 82533; 82550; 82607; 82746; 83036; 83540; 83605; 83690; 83735; 84100; 84443; 84466; 85025; 85651; 86038; 86140; 87040; 93005; 93306; 96361; 96374; 97161; 99284; 99285; A9270; J1815; J3370; 81001; 87086

== ENCOUNTER 2020-05-29 13:43 | Outpatient (CLI) | payer MEDICARE ==
[~2020-05-29 13:43] MED LIST: BUFFERED LIDOCAINE 10 ML SYRINGE ONE; GADOBUTROL 7.5 MMOL/7.5 ML VIAL ONE
[2020-05-29] MEDS ORDERED: BUFFERED LIDOCAINE 10 ML SYRINGE IU ONE (16:25)
[2020-05-29] MEDS ORDERED: iohexoL-240 10 ML VIAL IVP ONE (16:27)
[2020-05-29] MEDS ORDERED: GADOBUTROL 7.5 MMOL/7.5 ML VIAL IVP ONE (16:28)
--- NOTE | 2020-05-29 17:47 | MRI Report ---
PROCEDURE: Arthrogram Shoulder RT INDICATIONS: ABN XR OF SHOULDER CONTRAST: 12 mL of diluted intra-articular gadolinium contrast. TECHNIQUE: After the administration of 12 mL of dilute intra-articular Gadolinium contrast, oblique coronal T1 a nd T2 spin echo with fat saturation, oblique sagittal T1 spin echo with and without fat saturation, o blique sagittal T2 fast spin echo with fat saturation, axial T1 spin echo with fat saturation through the shoulder. COMPARISON: Shoulder radiograph dated 04/10/2020. FINDINGS: Image quality: Excellent. Rotator cuff: Tendinosis and low-grade articular and bursal surface partial-thickness tear involving distal supraspinatus and infraspinatus at their insertion on humeral head extending to musculotendino us junction is seen. Distal subscapularis tendinosis is also noted. No full-thickness rotator cuff te ndon rupture. No rotator cuff muscle atrophy on sagittal images. Bones and bursae: No bone marrow contusions or fractures. Moderate acromioclavicular joint osteophyt ic changes are seen with downward osteophyte formation depressing on musculotendinous junction of sup raspinatus. Mild to moderate glenohumeral joint osteophytic changes also seen. Capsule and soft tissues: There is extensive signal abnormality and contour irregularity involving po sterior labrum extending from 7 to 12:00 position suggestive of extensive posterior labral tear. Ante rior labrum is grossly intact. The glenohumeral ligaments appear intact. The long head of the biceps tendon demonstrates normal location and morphology. The rotator interval appears normal, without fi brosis. The coracohumeral ligament is of normal thickness. No intra-articular bodies. IMPRESSION: 1. Moderate acromioclavicular joint and glenohumeral joint osteophyte is. No fracture or dislocation. No gross intra-articular loose body. 2. Tendinosis and low-grade articular and bursal surface partial-thickness tear involving distal supr aspinatus and infraspinatus extending to musculotendinous junction. Distal subscapularis tendinosis. No full-thickness rotator cuff tendon rupture. 3. Suggestion of extensive posterior labral tear. Reviewed by: Jose D Wharton MD on 05/29/2020 5:46 PM PDT Approved by: Jose D Wharton MD on 05/29/2020 5:46 PM PDT Station ID: [id number]
--- NOTE | 2020-05-29 18:02 | XRAY Report ---
Reason: ABN XR OF SHOULDER Procedure Date: 05/29/2020 Accession Number: [id number] / [id number] Procedure: FL - Arthrogram Needle Placement CPT Code: Final Report FULL RESULT: PROCEDURE: Arthrogram Needle Placement INDICATIONS: ABN XR OF SHOULDER CONTRAST: CONTRAST: Omipaque 240 FLUOROSCOPY TIME: FLUORO TIME: 12 sec and NUMBER IMAGES: 4 TECHNIQUE: The indications, alternatives, benefits, risks, and complications of the procedure were explained to the patient. Written informed consent was obtained and placed in the chart. The shoulder was examined fluoroscopically and a site for needle placement chosen for entry into the glenohumeral joint from an anterior approach. The skin was prepped and draped in the usual fashion, and 1% lidocaine infiltrated from skin down to joint capsule. A spinal needle was inserted into the glenohumeral joint, and a small volume of lidocaine was injected to help verify intra-articular positioning of the spinal needle. A small amount of iodinated contrast media was then injected to confirm intra-articular placement of the needle tip. This was followed by approximately 12 mL dilute solution of a gadolinium containing MR contrast agent. The needle was removed and a dressing was applied. The patient was given postprocedural instructions and sent to the MR suite for MR imaging. FINDINGS: A single fluoroscopic spot image demonstrates intra-articular location of injected iodinated contrast. Of note, patient reported approximately 8/10 right shoulder pain prior to the arthrogram procedure which decreased substantially after the procedure. IMPRESSION: Successful fluoroscopically guided administration of dilute Gadolinium solution into the shoulder joint for MR arthrogram. Reviewed by: Fadi Larsen MD on 05/29/2020 6:01 PM PDT Approved by: Fadi Larsen MD on 05/29/2020 6:01 PM PDT Station ID: [id number]
== END 2020-05-29 13:44 | disposition home or self-care (01) ==
LOC: DI 13:43
PROVIDERS: ATTEND Family Medicine
DX: M25.711 Osteophyte, right shoulder (principal); M75.111 Incomplete rotator cuff tear or rupture of right shoulder, not specified as traumatic
CPT/HCPCS: 23350; 73222; 77002; A9585

== ENCOUNTER 2023-04-09 18:30 | Emergency (ER) | payer MEDICARE ==
--- NOTE | 2023-04-09 19:00 | ED Physician Documentation ---
History of Present Illness - Stated complaint Stated Complaint: MALE - Chief complaint Chief Complaint: Abd Pain - History obtained from History obtained from: Patient (82-year-old gentleman has not had a good bowel movement about 5 days. Now with quite a bit of rectal pressure and inability to urinate for the last few hours.) PD PAST MEDICAL HISTORY - Past Medical History Cardiovascular: Hypertension Respiratory: None Neuro: None Endocrine/Autoimmune: Type 2 diabetes GI: None : None HEENT: None Psych: None Musculoskeletal: None Derm: None - Past Surgical History Past Surgical History: No - Present Medications Home Medications: Ambulatory Orders Medication Instructions Recorded Confirmed Terazosin HCl 10 mg PO DAILY 04/08/20 04/09/23 Ubidecarenone [Co Q-10] 300 mg PO DAILY 04/08/20 04/09/23 glipiZIDE [Glipizide] 10 mg PO DAILY 04/08/20 04/09/23 metFORMIN [Glucophage] 1,000 mg PO BIDWM 04/08/20 04/09/23 Ferrous Gluconate 240 mg PO DAILY #30 tablet 04/10/20 04/09/23 amLODIPine [Norvasc] 5 mg PO DAILY #30 tablet 04/10/20 04/09/23 Amlodipine Besylate [Norvasc] 10 mg PO DAILY 04/09/23 04/09/23 Atenolol [Tenormin] 50 mg PO DAILY 04/09/23 04/09/23 Empagliflozin [Jardiance] 10 mg PO DAILY 04/09/23 04/09/23 Enalapril Maleate [Vasotec] 20 mg PO DAILY 04/09/23 04/09/23 Insulin Glargine [Lantus Solostar] 45 unit SUBQ HS 04/09/23 04/09/23 Rosuvastatin Calcium 20 mg PO DAILY 04/09/23 04/09/23 SITagliptin [Januvia] 100 mg PO DAILY 04/09/23 04/09/23 Vit A/Vit C/Vit E/Zinc/Copper 1 each PO DAILY 04/09/23 04/09/23 [Preservision Areds Softgel] hydroCHLOROthiazide [Hydrodiuril] 25 mg PO DAILY 04/09/23 04/09/23 - Allergies Allergies/Adverse Reactions: Allergies Allergy/AdvReac Type Severity Reaction Status Date / Time No Known Drug Allergies Allergy Verified 04/09/23 18:45 - Social History Does the pt smoke?: No Smoking Status: Never smoker Does the pt drink ETOH?: No Does the pt have substance abuse?: No - Immunizations Immunizations are current?: Yes - POLST Patient has POLST: No POLST Status: DNR (please see advanced care planning conversation) PD ED PE NORMAL - Vitals Vital signs reviewed: Yes - General General: Alert and oriented X 3, No acute distress - Abdomen Abdomen: Normal bowel sounds, Soft, Non tender - Rectal Rectal: Other (There is a large firm fecal impaction, there is rectal tenderness from straining. No blood.) - Neuro Neuro: Alert and oriented X 3, Normal speech Results - Vitals Vitals: Vital Signs - 24 hr 04/09/23 18:37 Temperature 36.9 C Heart Rate 69 Respiratory 12 Rate Blood Pressure 124/68 O2 Saturation 100 Oxygen O2 Source Room air PD Medical Decision Making - ED course ED course: 82-year-old gentleman with fecal impaction also causing urinary retention. He had an enema placed here during exam and had had a large bowel output and was able to urinate again. Departure - Departure Disposition: 01 Home, Self Care Clinical Impression: Fecal impaction Condition: Stable Instructions: ED Impaction Fecal Treated Comments: You can continue the generic MiraLAX as per package instructions, you can actually take it multiple times a day if you are having a real problem. Drink plenty of water. Call your doctor to arrange a follow-up appointment, make the next available appointment. In the interim, return anytime if worse or if new symptoms develop.
[2023-04-09 19:57] VITALS: BP 118/67
== END 2023-04-09 19:53 | disposition home or self-care (01) ==
LOC: ED 18:30
DX: K56.41 Fecal impaction (principal); I10 Essential (primary) hypertension; E11.9 Type 2 diabetes mellitus without complications; Z79.84 Long term (current) use of oral hypoglycemic drugs
CPT/HCPCS: 99281; 99283